=== PATIENT | male | born 1995 | race Caucasian/White ===

== ENCOUNTER → 2016-06-16 | Outpatient (CLI) | payer OTHER ==
[~2016-06-16] MED LIST: AGM875T PO; IBP600T1 PO; METH4TAB PO; ONDA8TAB9 PO; ONDAN4ODT PO; PRX10T PO
--- NOTE | 2016-06-16 15:26 | Diagnostic Imaging Report ---
EXAM: Skull, 3 views. INDICATION: Metal check for MRI. FINDINGS: Three views were obtained. There are no prior studies available for comparison. There is no evidence for a radiopaque foreign body overlying the orbits. There is no fracture or acute bony abnormality appreciated. The sinuses are generally clear. IMPRESSION: There is no evidence for a radiopaque foreign body overlying the orbits. Dictated by: Dictated on workstation # [id number]
--- NOTE | 2016-06-16 16:44 | Diagnostic Imaging Report ---
PROCEDURE: MRI right joint upper extremity without contrast. TECHNIQUE: Multiplanar, multisequence non contrast-enhanced MRI of the right upper extremity was accomplished. INDICATION: Right shoulder pain. FINDINGS: There is no os acromiale or Hill-Sachs deformity. There is acromioclavicular joint hypertrophy with no significant osteophyte formation. The clavicular end of the joint, however, is slightly prominent and projects inferiorly with a mild impression upon the myotendinous junction of the supraspinatus. There is mild increased signal in the distal supraspinatus and infraspinatus tendons suggestive of tendinosis and low-grade intrasubstance tear. There is minimal fluid in the subacromial-subdeltoid bursa. The long head biceps tendon is within its groove. The subscapularis tendon appears unremarkable. The glenoid labrum is better evaluated with an MR arthrogram study; however, it appears grossly unremarkable. There is no bone marrow signal abnormality. The muscle bulk and signal appear normal. IMPRESSION: There is mild rotator cuff tendinosis and suggestion of a low-grade intrasubstance tear. No full-thickness or retracted tear. Dictated by: Dictated on workstation # [id number]
== END ==
LOC: RAD 14:24
PROVIDERS: ATTEND Nurse Practitioner Family
DX: M25.511 Pain in right shoulder (principal); W19.XXXA Unspecified fall, initial encounter; Y99.8 Other external cause status
CPT/HCPCS: 70250; 73221

== ENCOUNTER 2017-05-07 17:15 | Emergency (ER) | payer OTHER ==
[~2017-05-07] VITALS: Ht 175.3 cm; Wt 72.6 kg
--- OUTSIDE RECORDS SUMMARY | 2017-05-07 17:22 | XMS REPORT ---
Author Author LIZBET GUNN [facility] eClinicalWorks Address Unknown Phone Unavailable Care Team Providers Care Proposal Manager Writer Name Role Phone LIZBET GUNN CP Unavailable Allergies, Adverse Reactions, Alerts Substance Reaction Event Type Naproxen 500 Mg Tablet Info Not Available Non Drug Allergy Problems Problem Type Condition ICD-9 Code Onset Dates Condition Status Problem Nausea alone 787.02 Active Problem Hip, thigh, leg, and ankle, superficial foreign body (splinter), without major open wound and without mention of infection 916.6 Active Problem Heartburn 787.1 Active Problem Acute tonsillitis 463 Active Problem Acute upper respiratory infections of unspecified site 465.9 Active Problem Nausea 787.02 Active Problem Unspecified disorder of skin and subcutaneous tissue 709.9 Active Problem Problems related to high-risk sexual behavior V69.2 Active Problem Sprain and strain of unspecified site of shoulder and upper arm 840.9 Active Problem Sprain and strain of unspecified site of back 847.9 Active Problem Special screening examination for unspecified viral disease V73.99 Active Problem Panic disorder without agoraphobia 300.01 Active Assessment Nausea 787.02 Active Problem Screening examination for venereal disease V74.5 Active Problem Other accidental fall from one level to another E884.9 Active Problem 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 Active Problem Unspecified episodic mood disorder 296.90 Active Problem Unspecified gastritis and gastroduodenitis without mention of hemorrhage 535.50 Active Problem Esophageal reflux 530.81 Active Problem 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.29 Active Medications Medication Code System Code Instructions Start Date End Date Status Dosage Zofran [facility] [address]-75 4 MG Orally Once a day Nov 01, 2014 2 tablets Procedures Procedure Coding System Code Date Office Visit, Est Pt., Level 3 CPT-4 79179 Nov 01, 2014 Vital Signs Date/Time: Nov 01, 2014 Temperature 98.0 F Weight 151.0 lbs Height 68 in BMI 22.96 Index Blood Pressure Diastolic 68 mmHg Blood Pressure Systolic 102 mmHg Cardiac Monitoring Heart Rate 86 bpm BMIPercentile 51.47 % Wt Percentile 43.88 % Results No Known Results Summary Purpose eClinicalWorks Submission
--- OUTSIDE RECORDS SUMMARY | 2017-05-07 17:23 | XMS REPORT ---
Author Author ALEJO HEAD [facility] eClinicalWorks Address Unknown Phone Unavailable Care Team Providers Care Ux Lead Name Role Phone ALEJO HEAD CP Unavailable Allergies, Adverse Reactions, Alerts Substance Reaction Event Type Naproxen 500 Mg Tablet Info Not Available Non Drug Allergy Problems Problem Type Condition Code Onset Dates Condition Status Problem Nausea [...] Panic disorder without agoraphobia 300.01 Active Assessment Left lateral knee pain M25.562 Active Problem Screening examination for venereal disease V74.5 Active Problem Other accidental fall from one level to another E884.9 Active Problem 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 Active Problem Unspecified episodic mood disorder 296.90 Active Problem Unspecified gastritis and gastroduodenitis without mention of hemorrhage 535.50 Active Problem Esophageal reflux 530.81 Active Problem 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
--- OUTSIDE RECORDS SUMMARY | 2017-05-07 17:23 | XMS REPORT ---
Author Author ANGELITO SHORE [facility] eClinicalWorks Address Unknown Phone Unavailable Care Team Providers Care Lettuce Trimmer Name Role Phone ANGELITO SHORE CP Unavailable Allergies, Adverse Reactions, Alerts Substance Reaction Event Type Naproxen 500 Mg Tablet Info Not Available Non Drug Allergy Problems Problem Type Condition ICD-9 Code Onset Dates Condition Status Problem 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.29 Active Problem Heartburn 787.1 Active Problem Nausea alone 787.02 Active Problem Acute upper respiratory infections of unspecified site 465.9 Active Problem Sprain and strain of unspecified site of shoulder and upper arm 840.9 Active Problem Acute tonsillitis 463 Active Problem Problems related to high-risk sexual behavior V69.2 Active Problem Hip, thigh, leg, and ankle, superficial foreign body (splinter), without major open wound and without mention of infection 916.6 Active Problem Sprain and strain of unspecified site of back 847.9 Active Problem Unspecified disorder of skin and subcutaneous tissue 709.9 Active Problem Screening examination for venereal disease V74.5 Active Problem Special screening examination for unspecified viral disease V73.99 Active Assessment Contusion 924.9 Active Problem Esophageal reflux 530.81 Active Problem Other accidental fall from one level to another E884.9 Active Problem Panic disorder without agoraphobia 300.01 Active Problem 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 Active Problem Unspecified episodic mood disorder 296.90 Active Problem Unspecified gastritis and gastroduodenitis without mention of hemorrhage 535.50 Active Medications No Known Medications Procedures Procedure Coding System Code Date Office Visit, Est Pt., Level 2 CPT-4 71865 Oct 17, 2014 Vital Signs Date/Time: Oct 17, 2014 Temperature 97.3 F Weight 151.8 lbs Height 68 in BMI 23.08 Index Blood Pressure Diastolic 60 mmHg Blood Pressure Systolic 112 mmHg Cardiac Monitoring Heart Rate 82 bpm BMIPercentile 53.58 % Wt Percentile 45.67 % Results No Known Results Summary Purpose eClinicalWorks Submission
--- OUTSIDE RECORDS SUMMARY | 2017-05-07 17:23 | XMS REPORT | Continuity of Care Document ---
Author Author [facility] Address Unknown Phone Unavailable Allergies Active Description Code Type Severity Reaction Onset Reported/Identified Relationship to Patient Clinical Status Yes No Known Drug Allergies [id number] Drug Allergy Unknown N/A 12/20/2010 Yes naproxen 500 mg tablet Drug Allergy 06/28/2011 Yes naproxen 500 mg tablet Drug Allergy N/A N/A 06/28/2011 Yes naproxen [id number] Drug Allergy Unknown N/A 05/01/2015 Medications There is no data. Problems Date Dx Coded Attending Type Code Diagnosis Diagnosed By 04/27/2010 719.41 PAIN IN JOINT INVOLVING SHOULDER REGION 04/27/2010 YVONNE RODRIGUEZ APRN 719.41 PAIN IN JOINT INVOLVING SHOULDER REGION 04/27/2010 719.41 PAIN IN JOINT INVOLVING SHOULDER REGION 04/27/2010 719.41 PAIN IN JOINT INVOLVING SHOULDER REGION 04/27/2010 YVONNE RODRIGUEZ APRN 719.41 PAIN IN JOINT INVOLVING SHOULDER REGION 04/27/2010 YVONNE RODRIGUEZ APRN 719.41 PAIN IN JOINT INVOLVING SHOULDER REGION 12/20/2010 Ot 840.9 SPRAIN SHOULDER/ARM NOS 12/20/2010 Ot 923.00 CONTUSION SHOULDER REG 12/20/2010 Ot 959.2 SHLDR/UPPER ARM INJ NOS 12/20/2010 Ot E000.8 OTHER EXTERNAL CAUSE STATUS 12/20/2010 Ot E005.3 ACTIVITIES INVOLVING TRAMPOLINE 12/20/2010 Ot E849.0 ACCIDENT IN HOME 12/20/2010 Ot E888.9 FALL NOS 03/10/2011 296.90 MOOD DISORDER NOS 03/10/2011 300.01 AN PANIC DIS W/O AGORA 03/10/2011 YVONNE RODRIGUEZ APRN 296.90 MOOD DISORDER NOS 03/10/2011 YVONNE RODRIGUEZ APRN 300.01 AN PANIC DIS W/O AGORA 03/10/2011 296.90 MOOD DISORDER NOS 03/10/2011 300.01 AN PANIC DIS W/O AGORA 03/10/2011 296.90 MOOD DISORDER NOS 03/10/2011 300.01 AN PANIC DIS W/O AGORA 03/10/2011 YVONNE RODRIGUEZ APRN 296.90 MOOD DISORDER NOS 03/10/2011 YVONNE RODRIGUEZ APRN 300.01 AN PANIC DIS W/O AGORA 03/10/2011 YVONNE RODRIGUEZ APRN 296.90 MOOD DISORDER NOS 03/10/2011 YVONNE RODRIGUEZ APRN 300.01 AN PANIC DIS W/O AGORA 05/25/2011 840.9 SPRAIN/STRAIN SHOULDER/ARM 05/25/2011 847.9 SPRAIN/STRAIN BACK UNSPEC 05/25/2011 YVONNE RODRIGUEZ APRN 840.9 SPRAIN/STRAIN SHOULDER/ARM 05/25/2011 YVONNE RODRIGUEZ APRN 847.9 SPRAIN/STRAIN BACK UNSPEC 05/25/2011 840.9 SPRAIN/STRAIN SHOULDER/ARM 05/25/2011 847.9 SPRAIN/STRAIN BACK UNSPEC 05/25/2011 840.9 SPRAIN/STRAIN SHOULDER/ARM 05/25/2011 847.9 SPRAIN/STRAIN BACK UNSPEC 05/25/2011 YVONNE RODRIGUEZ APRN 840.9 SPRAIN/STRAIN SHOULDER/ARM 05/25/2011 YVONNE RODRIGUEZ APRN 847.9 SPRAIN/STRAIN BACK UNSPEC 05/25/2011 YVONNE RODRIGUEZ APRN 840.9 SPRAIN/STRAIN SHOULDER/ARM 05/25/2011 YVONNE RODRIGUEZ APRN 847.9 SPRAIN/STRAIN BACK UNSPEC 06/28/2011 309.29 EXCITABILITY 06/28/2011 787.02 NAUSEA ALONE 06/28/2011 787.1 HEARTBURN 06/28/2011 YVONNE RODRIGUEZ APRN 309.29 EXCITABILITY 06/28/2011 YVONNE RODRIGUEZ APRN 787.02 NAUSEA ALONE 06/28/2011 YVONNE RODRIGUEZ APRN 787.1 HEARTBURN 06/28/2011 309.29 EXCITABILITY 06/28/2011 787.02 NAUSEA ALONE 06/28/2011 787.1 HEARTBURN 06/28/2011 309.29 EXCITABILITY 06/28/2011 787.02 NAUSEA ALONE 06/28/2011 787.1 HEARTBURN 06/28/2011 YVONNE RODRIGUEZ APRN 309.29 EXCITABILITY 06/28/2011 YVONNE RODRGIUEZ APRN 787.02 NAUSEA ALONE 06/28/2011 YVONNE RODRIGUEZ APRN 787.1 HEARTBURN 06/28/2011 YVONNE RODRIGUEZ APRN 309.29 EXCITABILITY 06/28/2011 YVONNE RODRIGUEZ APRN 787.02 NAUSEA ALONE 06/28/2011 YVONNE RODRIGUEZ APRN 787.1 HEARTBURN 08/27/2011 Ot 462 ACUTE PHARYNGITIS 08/27/2011 Ot 780.60 FEVER, UNSPECIFIED 09/09/2011 V73.99 VIRAL DISEAS SCREENING, UNSP 09/09/2011 YVONNE RODRIGUEZ APRN V73.99 VIRAL DISEAS SCREENING, UNSP 09/09/2011 V73.99 VIRAL DISEAS SCREENING, UNSP 09/09/2011 V73.99 VIRAL DISEAS SCREENING, UNSP 09/09/2011 YVONNE RODRIGUEZ APRN V73.99 VIRAL DISEAS SCREENING, UNSP 09/09/2011 YVONNE RODRIGUEZ APRN V73.99 VIRAL DISEAS SCREENING, UNSP 11/21/2011 463 TONSILLITIS ACUTE 11/21/2011 YVONNE RODRIGUEZ APRN 463 TONSILLITIS ACUTE 11/21/2011 463 TONSILLITIS ACUTE 11/21/2011 463 TONSILLITIS ACUTE 11/21/2011 YVONNE RODRIGUEZ APRN 463 TONSILLITIS ACUTE 11/21/2011 YVONNE RODRIGUEZ APRN 463 TONSILLITIS ACUTE 11/24/2011 709.9 UNSPECIFIED DISORDER OF SKIN AND SUBCUTANEOUS TISSUE 11/24/2011 V69.2 HIGH-RISK SEXUAL BEHAVIOR 11/24/2011 YVONNE RODRIGUEZ APRN 709.9 UNSPECIFIED DISORDER OF SKIN AND SUBCUTANEOUS TISSUE 11/24/2011 YVONNE RODRIGUEZ APRN V69.2 HIGH-RISK SEXUAL BEHAVIOR 11/24/2011 709.9 UNSPECIFIED DISORDER OF SKIN AND SUBCUTANEOUS TISSUE 11/24/2011 V69.2 HIGH-RISK SEXUAL BEHAVIOR 11/24/2011 709.9 UNSPECIFIED DISORDER OF SKIN AND SUBCUTANEOUS TISSUE 11/24/2011 V69.2 HIGH-RISK SEXUAL BEHAVIOR 11/24/2011 YVONNE RODRIGUEZ APRN 709.9 UNSPECIFIED DISORDER OF SKIN AND SUBCUTANEOUS TISSUE 11/24/2011 YVONNE RODRIGUEZ APRN V69.2 HIGH-RISK SEXUAL BEHAVIOR 11/24/2011 YVONNE RODRIGUEZ APRN 709.9 UNSPECIFIED DISORDER OF SKIN AND SUBCUTANEOUS TISSUE 11/24/2011 YVONNE RODRIGUEZ APRN V69.2 HIGH-RISK SEXUAL BEHAVIOR 03/24/2012 465.9 UPPER RESPIRATORY INFECTION 03/24/2012 465.9 UPPER RESPIRATORY INFECTION 03/24/2012 YVONNE RODRIGUEZ APRN T 465.9 UPPER RESPIRATORY INFECTION 03/24/2012 YVONNE RODRIGUEZ APRN T 465.9 UPPER RESPIRATORY INFECTION 08/15/2012 V74.5 STD SCREEN 08/15/2012 YVONNE RODRIGUEZ APRN V74.5 STD SCREEN 08/15/2012 YVONNE RODRIGUEZ APRN V74.5 STD SCREEN 07/03/2013 YVONNE RODRIGUEZ APRN T 530.81 GERD 07/03/2013 YVONNE RODRIGUEZ APRN 530.81 GERD 07/29/2013 YVONNE RODRIGUEZ APRN 535.50 GASTRITIS UNSPEC 07/29/2013 YVONNE RODRIGUEZ APRN 598.1 TRAUMATIC URETHRAL STRICTURE 07/29/2013 YVONNE RODRIGUEZ APRN E884.9 OTHER ACCIDENTAL FALL FROM ONE LEVEL TO ANOTHER 07/29/2013 YVONNE RODRIGUEZ APRN 535.50 GASTRITIS UNSPEC 07/29/2013 YVONNE RODRIGUEZ APRN 598.1 TRAUMATIC URETHRAL STRICTURE 07/29/2013 YVONNE RODRIGUEZ APRN E884.9 OTHER ACCIDENTAL FALL FROM ONE LEVEL TO ANOTHER 09/24/2013 YVONNE RODRIGUEZ APRN 916.6 SUPERFICIAL FOREIGN BODY (SPLINTER) OF HIP THIGH LEG AND ANKLE WITHOUT MAJOR OPEN WOUND AND WITHOUT INFECTION 05/01/2015 PAUL TUTTLE, SWETHA Steele Ot K52.9 NONINFECTIVE GASTROENTERITIS AND COLITIS 05/04/2015 PAUL TUTTLE, SWETHA Steele Ot K52.9 05/27/2015 PAUL TUTTLE, SWETHA Steele Ot K52.9 06/16/2016 SHLOMO LEON APRN Ot M25.511 PAIN IN RIGHT SHOULDER 06/16/2016 SHLOMO LEON APRN Ot W19.XXXA UNSPECIFIED FALL, INITIAL ENCOUNTER 06/16/2016 SHLOMO LEON APRN Ot Y99.8 OTHER EXTERNAL CAUSE STATUS 06/16/2016 SHLOMO LEON APRN Ot M25.511 PAIN IN RIGHT SHOULDER 06/16/2016 SHLOMO LEON APRN Ot W19.XXXA UNSPECIFIED FALL, INITIAL ENCOUNTER 06/16/2016 SHLOMO LEON APRN Ot Y99.8 OTHER EXTERNAL CAUSE STATUS 08/31/2016 SHLOMO LEON APRN Ot M25.511 PAIN IN RIGHT SHOULDER 08/31/2016 SHLOMO LEON APRN Ot W19.XXXA UNSPECIFIED FALL, INITIAL ENCOUNTER 08/31/2016 SHLOMO LEON APRN Ot Y99.8 OTHER EXTERNAL CAUSE STATUS Procedures Code [place] [address] ROUTINE VENIPUNCTURE 01/20/2012 HERPSM1,2 HERPES SIMPLEX 1 AND 2, IGM, IGG 01/21/2012 01700 ROUTINE VENIPUNCTURE 08/15/2012 43704 SYPHILLIS-STATE LAB 08/15/2012 41492 GC/CHLAM URINE (STATE) 08/15/2012 69477 HIV ANTIBODIES (RML) 08/17/2012 10681 XRAY TIBIA/FIBULA LEFT 09/24/2013 Results There is no data. Encounters ACCT No. Visit Date/Time Discharge Status Pt. Type Provider Facility Loc./Unit Complaint [id number] 09/24/2013 14:30:00 09/24/2013 23:59:59 CLS Outpatient YVONNE RODRIGUEZ APRN [id number] 07/29/2013 15:43:00 07/29/2013 23:59:59 CLS Outpatient YVONNE RODRIGUEZ APRN [id number] 03/24/2012 09:29:00 03/24/2012 23:59:59 CLS Outpatient [id number] 01/20/2012 12:21:00 01/20/2012 23:59:59 CLS Outpatient YVONNE RODRIGUEZ APRN [id number] 01/20/2012 12:21:00 01/20/2012 23:59:59 CLS Outpatient [id number] 08/15/2012 16:28:00 Document Registration [id number] 06/16/2016 14:24:00 06/16/2016 23:59:59 CLS Outpatient SHLOMO LEON APRN [facility] RAD M25.511 [id number] 05/01/2015 09:45:00 05/01/2015 12:39:00 DIS Emergency PAUL TUTTLE, SWETHA Steele [facility] ER HEADACHE VOMITING/ DIARRHEA FEVER [id number] 08/27/2011 09:53:00 Document Registration [id number] 12/20/2010 21:57:00 Document Registration
--- OUTSIDE RECORDS SUMMARY | 2017-05-07 17:23 | XMS REPORT ---
Author Author LIZBET GUNN [facility] eClinicalWorks Address Unknown Phone Unavailable Care Team Providers Care Agency Owner Name Role Phone LIZBET GUNN CP Unavailable Allergies, Adverse Reactions, Alerts Substance Reaction Event Type Naproxen 500 Mg Tablet Info Not Available Non Drug Allergy Problems Problem Type Condition Code Onset Dates Condition Status Assessment Left knee pain M25.562 Active Problem Knee pain M25.569 Active Medications Medication Code System Code Instructions Start Date End Date Status Dosage Nabumetone [facility] [address]-18 500 MG Orally Twice a day June 12, 2015 July 12, 2015 1 tablet Procedures Procedure Coding System Code Date Office Visit, Est Pt., Level 3 CPT-4 04948 June 12, 2015 X-RAY EXAM OF KNEE, 3 CPT-4 81557 June 12, 2015 Vital Signs Date/Time: June 12, 2015 Temperature 98.3 F Weight 169.2 lbs Height 68 in BMI 25.72 Index Blood Pressure Diastolic 62 mmHg Blood Pressure Systolic 112 mmHg Cardiac Monitoring Heart Rate 72 bpm Results Name Result Date Reference Range Unit Abnormality Flag Xray : Knee, Left 3 views (IN HOUSE) Summary Purpose eClinicalWorks Submission
--- OUTSIDE RECORDS SUMMARY | 2017-05-07 17:23 | XMS REPORT ---
Author YVONNE Mcmanus [facility] eClinicalWorks Address Unknown Phone Unavailable Care Team Providers Care Receipt And Report Clerk Name Role Phone YVONNE RODRIGUEZ CP Unavailable Allergies, Adverse Reactions, Alerts Substance [...] Panic disorder without agoraphobia 300.01 Active Assessment Ankle sprain 845.00 Active Problem Screening examination for venereal disease [...] Office Visit, Est Pt., Level 3 CPT-4 96641 Nov 07, 2014 X-RAY EXAM OF ANKLE CPT-4 84483 Nov 07, 2014 Vital Signs Date/Time: Nov 07, 2014 Temperature 98.1 F Weight 151.7 lbs Height 68 in BMI 23.06 Index Blood Pressure Diastolic 50 mmHg Blood Pressure Systolic 116 mmHg Cardiac Monitoring Heart Rate 64 bpm BMIPercentile 52.75 % Wt Percentile 45.06 % Results No Known Results Summary Purpose eClinicalWorks Submission
--- NOTE | 2017-05-07 18:18 | Diagnostic Imaging Report ---
PATIENT HISTORY: Twisting injury to the left knee 5-7 days ago, pain in the anterior left knee. TECHNIQUE: Three views of the left knee. COMPARISON: None. FINDINGS: No acute fracture or dislocation is seen in the left knee. Alignment appears normal. The joint spaces are preserved. No significant left knee joint effusion is seen. IMPRESSION: No acute osseous abnormality is seen in the left knee. Dictated by: Dictated on workstation # [id number]
--- NOTE | 2017-05-07 18:25 | ED Lower Extremity ---
General Chief Complaint: Lower Extremity Stated Complaint: L KNEE PAIN Nursing Triage Note: ARRIVED VIA AMB TO ROOM 10 WITHOUT DIFFICULTY. HAS HAD SEVERAL LEFT KNEE INJURIES OVER THE LAST YEAR. THE LATEST WAS ON LAST MONDAY. STATES HE HEARD A POP AND HIS KNEE TWISTED AND NOW HE FEELS LIKE IT HAS FLUID ON IT. Nursing Sepsis Screen: No Definite Risk Source: patient History of Present Illness Date Seen by Provider: May 07, 2017 Time Seen by Provider: 17:55 Initial Comments PT C/O LEFT KNEE PAIN WHEN HE BENDS IT FOR OVER A WEEK HAS HAD PROBLEMS OFF AND ON WITH LEFT KNEE FOR A FEW YEARS LAST MONTH HE FELL ON IT, THEN OVER A WEEK AGO HE TWISTED IT AND IT POPPED NO OTHER INJURIES HAS NOT SOUGHT CARE FOR A COUPLE OF YEARS FOR THIS PROBLEM HAS NOT TAKEN ANYTHING FOR PAIN AT ANY TIME KNEE IS NOT HURTING TODAY PCP:SWAPNIL Allergies and Home Medications Allergies Coded Allergies: naproxen (Verified Allergy, Unknown, 05/01/15) Home Medications Methylprednisolone 4 Mg Tab.ds.pk, 4 MG PO UD Prescribed by: JANA SPEAR on 05/07/17 2936 Patient Home Medication List Home Medication List Reviewed: Yes Constitutional: no symptoms reported Musculoskeletal: see HPI Skin: no symptoms reported Psychiatric/Neurological: No Symptoms Reported Past Lhfulij-Hpnqdo-Dzoxss Hx Patient Social History Alcohol Use: Occasionally Uses Recreational Drug Use: No Smoking Status: Never a Smoker Recent Foreign Travel: No Contact w/Someone Who Travel: No Recent Infectious Disease Expo: No Surgeries History of Surgeries: No Respiratory History of Respiratory Disorde: No Cardiovascular History of Cardiac Disorders: No Neurological History of Neurological Disord: No Genitourinary History of Genitourinary Disor: No Gastrointestinal History of Gastrointestinal Di: Yes Gastrointestinal Disorders: Gastroesophageal Reflux Musculoskeletal History of Musculoskeletal Dis: Yes (LEFT KNEE PROBLEMS) Endocrine History of Endocrine Disorders: No HEENT History of HEENT Disorders: No Cancer History of Cancer: No Psychosocial History of Psychiatric Problem: No Integumentary History of Skin or Integumenta: No Physical Exam Vital Signs Vital Signs - First Documented 05/07/17 17:20 Temp 98.0 Pulse 78 Resp 18 B/P (MAP) 139/61 (87) Pulse Ox 98 Capillary Refill : Less Than 3 Seconds General Appearance: WD/WN, no apparent distress, other (STANDING UP, WALKING AROUND ROOM WITHOUT DIFFICULTY, SITS/BENDS KNEE WITHOUT DIFFICULTY. ) Hips: left hip normal inspection Legs: left leg normal inspection Knees: left knee normal range of motion, left knee no evidence of injury, left knee other (NO SWELLING OR EXTERNAL EVIDENCE OF TRAUMA. FULL ROM. NO LIGAMENT LAXITY. MOTOR/SENSORY/VASCULAR INTACT. ) Ankles: left ankle normal inspection Feet: left foot normal inspection Neurologic/Tendon: normal sensation, normal motor functions, normal tendon functions Neurologic/Psychiatric: assistant librarian II-XII nml as tested, no motor/sensory deficits, alert, normal mood/affect, oriented x 3 Skin: normal color, warm/dry Splinting and Joint Reduction : Jono wrap: Yes Immobilizers: 19 inch Knee Progress/Results/Core Measures Results/Orders My Orders Orders - JANA SPEAR DO Knee, Left, 3 Views (05/07/17 17:57) Jono Bandage (05/07/17 18:31) Knee Immobilizer (05/07/17 18:31) Vital Signs/I&O Vital Sign - Last 12Hours 05/07/17 17:20 Temp 98.0 Pulse 78 Resp 18 B/P (MAP) 139/61 (87) Pulse Ox 98 Blood Pressure Mean: 87 Diagnostic Imaging Comments XRAYS LEFT KNEE--NO ACUTE PROCESS, PER RADIOLOGIST REPORT @ 1820 Reviewed: Reviewed by Me Departure Impression Impression: Primary Impression: Left knee pain Disposition: 01 HOME, SELF-CARE Condition: Stable Departure-Patient Inst. Referrals: JOSE BARILLAS MD [facility] Patient Instructions: How to Use an Elastic Bandage, Knee Immobilizer (DC), Knee Sprain (DC) Add. Discharge Instructions: JONO WRAP AND KNEE IMMOBILIZER AT ALL TIMES ALTERNATE ICE AND HEAT TO AREA AT 20 MINUTE INTERVALS FOLLOW UP WITH DR. BARILLAS/ ORTHO 4 STATES NEXT WEEK FOR FURTHER CARE All discharge instructions reviewed with patient and/or family. Voiced understanding. Scripts Methylprednisolone (Medrol) 4 Mg Tab.ds.pk 4 MG PO UD, #1 PKG Prov: JANA SPEAR DO 05/07/17 JANA SPEAR DO May 07, 2017 18:25
[2017-05-07] MEDS ORDERED: METH4TAB PO (18:36)
[2017-05-07 18:52] VITALS: BP 139/61
== END 2017-05-07 19:00 | disposition home or self-care (01) ==
LOC: EDUNIT# 17:15 → ER 17:17
DX: M25.562 Pain in left knee (principal); K21.9 Gastro-esophageal reflux disease without esophagitis; Z91.81 History of falling
CPT/HCPCS: 73562

== ENCOUNTER 2018-07-11 11:22 | Emergency (ER) | payer SELFPAY ==
[~2018-07-11] VITALS: Ht 175.3 cm; Wt 74.8 kg
--- OUTSIDE RECORDS SUMMARY | 2018-07-11 11:28 | XMS REPORT ---
Author Author Migration, Doctor Organization [facility] Address Unknown Phone Unavailable Care Team Providers Care Software Licensing Executive Name Role Phone Migration, Doctor Unavailable Unavailable PROBLEMS Type Condition ICD9-CM Code [id number] Code Onset Dates Condition Status SNOMED Code Problem Knee pain M25.569 Active [id number] ALLERGIES No Information ENCOUNTERS Encounter Location Date Diagnosis [place] [id number] [place] [address] Mar, Sore throat J02.9 and Acute nasopharyngitis J00 [place] [id number] [place] [address] May, Left knee pain M25.562 [place] [id number] [place] [address] Nov, Left lateral knee pain M25.562 [facility] [id number] [place] [address] Oct, Ankle sprain 845.00 [place] [id number] [place] [address] Oct, Nausea 787.02 [facility] [id number] [place] [address] Sep, Contusion 924.9 [facility] [id number] [place] [address] May, [facility] [id number] [place] [address] May, [facility] [id number] [place] [address] Sep, [facility] [id number] [place] [address] Sep, [facility] [place] [facility] [address] [id number] [place] [address] Sep, [facility] [place] [facility] [address] [id number] [place] [address] Sep, [facility] [place] [facility] [address] [id number] [place] [address] Jul, [facility] [place] [facility] [address] [id number] [place] [address] Jul, [facility] [place] [facility] [address] [id number] [place] [address] June, [facility] [place] [facility] [address] [id number] [place] [address] June, [facility] [place] [facility] [address] [id number] [place] [address] Aug, [facility] [place] [facility] [address] [id number] [place] [address] Jul, [facility] [place] [facility] [address] [id number] [place] [address] Jul, [facility] [place] [facility] [address] [id number] [place] [address] Mar, [facility] [place] [facility] [address] [id number] [place] [address] Feb, [facility] [place] [facility] [address] [id number], [place] [address] Feb, [facility] [place] [facility] [address] [id number] [place] [address] Jan, [facility] [place] [facility] [address] [id number] [place] [address] Jan, [facility] [place] [facility] [address] [id number] [place] [address] Jan, [facility] [place] [facility] [address] [id number] [place] [address] Jan, [facility] [place] [facility] [address] [id number] [place] [address] Dec, [facility] [place] [facility] [address] [id number] [place] [address] Dec, [facility] [place] [facility] [address] [id number] [place] [address] Nov, [facility] [place] [facility] [address] [id number] [place] [address] Nov, [facility] [place] [facility] [address] [id number] [place] [address] Nov, [facility] [place] [facility] [address] [id number] [place] [address] Nov, [facility] [place] [facility] [address] [facility] [id number] [place] [address] Nov, [facility] [place] [facility] [address] [id number] [place] [address] Nov, [facility] [place] [facility] [address] [facility] [id number] [place] [address] 15 Nov, 2011 [facility] [place] [facility] [address] [facility] [id number] [place] [address] Nov, [facility] [place] [facility] [address] [id number] [place] [address] Nov, [facility] [place] [facility] [address] [id number], [place] [address] Nov, [facility] [place] [facility] [address] [id number] [place] [address] Nov, [facility] [place] [facility] [address] [facility] [id number] [place] [address] Nov, [facility] [place] [facility] [address] [id number], [place] [address] Sep, [facility] [address], [place] [address] Aug, [facility] [address], [place] [address] Aug, [facility] [address], [place] [address] Aug, [facility] [id number] [place] [address] June, [facility] [id number] [place] [address] May, [facility] [address], [place] [address] Mar, [facility] [address], [place] [address] Feb, [facility] [address], [place] [address] Jan, IMMUNIZATIONS No Known Immunizations SOCIAL HISTORY Never Assessed REASON FOR VISIT EMR-[facility] [place] PLAN OF CARE VITAL SIGNS MEDICATIONS Unknown Medications RESULTS No Results PROCEDURES No Known procedures INSTRUCTIONS MEDICATIONS ADMINISTERED No Known Medications
--- OUTSIDE RECORDS SUMMARY | 2018-07-11 11:28 | XMS REPORT ---
Author Author Migration, Doctor Organization [facility] Address Unknown Phone Unavailable Care Team Providers Care Chemical Tester Name Role Phone Migration, Doctor Unavailable Unavailable PROBLEMS Type Condition ICD9-CM Code BCN32-SP Code Onset Dates Condition Status SNOMED Code Problem Knee pain M25.569 Active [id number] ALLERGIES No Information ENCOUNTERS Encounter Location Date Diagnosis [place] [id number] [place] [address] Mar, Sore throat J02.9 and Acute nasopharyngitis J00 [place] [id number] [place] [address] May, Left knee pain M25.562 [place] [id number] [place] [address] Nov, Left lateral knee pain M25.562 [facility] [id number] [place] [address] Oct, Ankle sprain 845.00 [facility] [id number] [place] [address] Oct, Nausea 787.02 [facility] [id number] [place] [address] Sep, Contusion 924.9 [facility] [id number] [place] [address] May, [facility] [id number] [place] [address] May, [facility] [id number] [place] [address] Sep, [facility] [id number] [place] [address] Sep, [facility] [place] [facility] [address] [id number] [place] [address] Sep, [facility] [place] [facility] [address] [id number] [place] [address] Sep, [facility] [place] [facility] [address] [id number] [place] [address] Jul, [facility] [place] [facility] [address] [id number] [place] [address] Jul, [facility] [place] [facility] [address] [id number] [place] [address] June, [facility] [place] [facility] [address] [id number] [place] [address] June, [facility] [place] [facility] [address] [id number] [place] [address] Aug, [facility] [place] [facility] [address] [id number] [place] [address] Jul, [facility] [place] [facility] [address] [id number] [place] [address] Jul, [facility] [place] [facility] [address] [id number] [place] [address] Mar, [facility] [place] [facility] [address] [id number] [place] [address] Feb, [facility] [place] [facility] [address] [id number], [place] [address] Feb, [facility] [place] [facility] [address] [id number] [place] [address] Jan, [facility] [place] [facility] [address] [id number] [place] [address] Jan, [facility] [place] [facility] [address] [id number] [place] [address] Jan, [facility] [place] [facility] [address] [id number] [place] [address] Jan, [facility] [place] [facility] [address] [id number] [place] [address] Dec, [facility] [place] [facility] [address] [id number] [place] [address] Dec, [facility] [place] [facility] [address] [id number] [place] [address] Nov, [facility] [place] [facility] [address] [id number] [place] [address] Nov, [facility] [place] [facility] [address] [id number] [place] [address] Nov, [facility] [place] [facility] [address] [id number] [place] [address] Nov, [facility] [place] [facility] [address] [facility] [id number] [place] [address] Nov, [facility] [place] [facility] [address] [id number] [place] [address] Nov, [facility] [place] [facility] [address] [facility] [id number] [place] [address] 15 Nov, 2011 [facility] [place] [facility] [address] [facility] [id number] [place] [address] Nov, [facility] [place] [facility] [address] [id number] [place] [address] Nov, [facility] [place] [facility] [address] [id number], [place] [address] Nov, [facility] [place] [facility] [address] [id number] [place] [address] Nov, [facility] [place] [facility] [address] [facility] [id number] [place] [address] Nov, [facility] [place] [facility] [address] [id number], [place] [address] Sep, [facility] [address], [place] [address] Aug, [facility] [address], [place] [address] Aug, [facility] [address], [place] [address] Aug, [facility] [id number] [place] [address] June, [facility] [address] [place] [address] May, [facility] [address], [place] [address] Mar, [facility] [address], [place] [address] Feb, [facility] [address], [place] [address] Jan, IMMUNIZATIONS No Known Immunizations SOCIAL HISTORY Never Assessed REASON FOR VISIT EMR-[facility] [place] PLAN OF CARE VITAL SIGNS MEDICATIONS Unknown Medications RESULTS No Results PROCEDURES No Known procedures INSTRUCTIONS MEDICATIONS ADMINISTERED No Known Medications
--- OUTSIDE RECORDS SUMMARY | 2018-07-11 11:28 | XMS REPORT ---
Author Author Migration, Doctor Organization [facility] Address Unknown Phone Unavailable Care Team Providers Care Machine Feeder Name Role Phone Migration, Doctor Unavailable Unavailable PROBLEMS Type Condition ICD9-CM Code [id number] Code Onset Dates Condition Status SNOMED Code Problem Knee pain M25.569 Active [id number] ALLERGIES No Information ENCOUNTERS Encounter Location Date Diagnosis [place] [id number] [place] [address] Mar, Sore throat J02.9 and Acute nasopharyngitis J00 [place] [id number] [place] [address] May, Left knee pain M25.562 [place] [id number] [place] [address] Nov, Left lateral knee pain M25.562 [facility] [id number] [place] [address] Oct, Ankle sprain 845.00 [facility] [id number] [place] [address] Oct, Nausea 787.02 [facility] [id number] [place] [address] Sep, Contusion 924.9 [facility] [id number] [place] [address] May, [facility] [id number] [place] [address] May, [facility] [id number] [place] [address] Sep, [facility] [id number] [place] [address] Sep, [facility] [place] [facility] [address] [id number] [place] [address] Sep, [facility] [place] [facility] [address] [id number] [place] [address] Sep, [facility] [place] [facility] [address] [id number] [place] [address] Jul, [facility] [place] [facility] [address] [id number] [place] [address] Jul, [facility] [place] [facility] [address] [id number] [place] [address] June, [facility] [place] [facility] [address] [id number] [place] [address] June, [facility] [place] [facility] [address] [id number] [place] [address] Aug, [facility] [place] [facility] [address] [id number] [place] [address] Jul, [facility] [place] [facility] [address] [id number] [place] [address] Jul, [facility] [place] [facility] [address] [id number] [place] [address] Mar, [facility] [place] [facility] [address] [id number] [place] [address] Feb, [facility] [place] [facility] [address] [id number] [place] [address] Feb, [facility] [place] [facility] [address] [id number] [place] [address] Jan, [facility] [place] [facility] [address] [id number] [place] [address] Jan, [facility] [place] [facility] [address] [id number] [place] [address] Jan, [facility] [place] [facility] [address] [id number] [place] [address] Jan, [facility] [place] [facility] [address] [id number] [place] [address] Dec, [facility] [place] [facility] [address] [id number] [place] [address] Dec, [facility] [place] [facility] [address] [id number] [place] [address] Nov, [facility] [place] [facility] [address] [id number] [place] [address] Nov, [facility] [place] [facility] [address] [id number] [place] [address] Nov, [facility] [place] [facility] [address] [id number] [place] [address] Nov, [facility] [place] [facility] [address] [facility] [id number] [place] [address] Nov, [facility] [place] [facility] [address] [id number] [place] [address] Nov, [facility] [place] [facility] [address] [facility] [id number] [place] [address] 15 Nov, 2011 [facility] [place] [facility] [address] [facility] [id number] [place] [address] Nov, [facility] [place] [facility] [address] [id number] [place] [address] Nov, [facility] [place] [facility] [address] [id number] [place] [address] Nov, [facility] [place] [facility] [address] [id number] [place] [address] Nov, [facility] [place] [facility] [address] [facility] [id number] [place] [address] Nov, [facility] [place] [facility] [address] [id number] [address] Sep, [facility] [address] [address] Aug, [facility] [address] [address] Aug, [facility] [address] [address] Aug, [facility] [id number] [place] [address] June, [facility] [address] [place] [address] May, [facility] [address] [address] Mar, [facility] [address] [address] Feb, [facility] [address] [address] Jan, IMMUNIZATIONS No Known Immunizations SOCIAL HISTORY Never Assessed REASON FOR VISIT EMR-[facility] [place] PLAN OF CARE VITAL SIGNS MEDICATIONS Unknown Medications RESULTS No Results PROCEDURES No Known procedures INSTRUCTIONS MEDICATIONS ADMINISTERED No Known Medications
--- OUTSIDE RECORDS SUMMARY | 2018-07-11 11:29 | XMS REPORT ---
Author Author Migration, Doctor Organization [facility] Address Unknown Phone Unavailable Care Team Providers Care Sales Order Administrator Name Role Phone Migration, Doctor Unavailable Unavailable PROBLEMS Type Condition ICD9-CM Code RFS78-IV Code Onset Dates Condition Status SNOMED Code Problem Knee pain M25.569 Active [id number] ALLERGIES No Information ENCOUNTERS Encounter Location Date Diagnosis [place] [id number] [place] [address] Mar, Sore throat J02.9 and Acute nasopharyngitis J00 [place] [id number] [place] [address] May, Left knee pain M25.562 [place] [id number] [place] [address] Nov, Left lateral knee pain M25.562 [facility] [id number] [place] [address] Oct, Ankle sprain 845.00 [place] [id number] [place] [address] Oct, Nausea 787.02 [facility] [id number] [place] [address] Sep, Contusion 924.9 [facility] [id number] [place] [address] May, [facility] [id number] [place] [address] May, [facility] [id number] [place] [address] Sep, [facility] [id number] [place] [address] Sep, [facility] [place] [facility] [address] [id number] [place] [address] Sep, [facility] [place] [facility] [address] [id number] [place] [address] Sep, [facility] [place] [facility] [address] [id number] [place] [address] Jul, [facility] [place] [facility] [address] [id number] [place] [address] Jul, [facility] [place] [facility] [address] [id number] [place] [address] June, [facility] [place] [facility] [address] [id number] [place] [address] June, [facility] [place] [facility] [address] [id number] [place] [address] Aug, [facility] [place] [facility] [address] [id number] [place] [address] Jul, [facility] [place] [facility] [address] [id number] [place] [address] Jul, [facility] [place] [facility] [address] [id number] [place] [address] Mar, [facility] [place] [facility] [address] [id number] [place] [address] Feb, [facility] [place] [facility] [address] [id number] [address] Feb, [facility] [place] [facility] [address] [id number] [place] [address] Jan, [facility] [place] [facility] [address] [id number] [place] [address] Jan, [facility] [place] [facility] [address] [id number] [place] [address] Jan, [facility] [place] [facility] [address] [id number] [place] [address] Jan, [facility] [place] [facility] [address] [id number] [place] [address] Dec, [facility] [place] [facility] [address] [id number] [place] [address] Dec, [facility] [place] [facility] [address] [id number] [place] [address] Nov, [facility] [place] [facility] [address] [id number] [place] [address] Nov, [facility] [place] [facility] [address] [id number] [place] [address] Nov, [facility] [place] [facility] [address] [id number] [place] [address] Nov, [facility] [place] [facility] [address] [facility] [id number] [place] [address] Nov, [facility] [place] [facility] [address] [id number] [place] [address] Nov, [facility] [place] [facility] [address] [facility] [id number] [place] [address] 15 Nov, 2011 [facility] [place] [facility] [address] [facility] [id number] [place] [address] Nov, [facility] [place] [facility] [address] [id number] [place] [address] Nov, [facility] [place] [facility] [address] [id number], [place] [address] Nov, [facility] [place] [facility] [address] [id number] [place] [address] Nov, [facility] [place] [facility] [address] [facility] [id number] [place] [address] Nov, [facility] [place] [facility] [address] [id number], [place] [address] Sep, [facility] [id number] [address] Aug, [facility] [id number] [address] Aug, [facility] [id number] [address] Aug, [facility] [id number] [place] [address] June, [facility] [id number] [place] [address] May, [facility] [id number] [address] Mar, [facility] [id number] [address] Feb, [facility] [id number] [address] Jan, IMMUNIZATIONS No Known Immunizations SOCIAL HISTORY Never Assessed [place]ASON FOR [place]IT [place] [place] VITAL SIGNS MEDICATIONS Unknown Medications RESULTS No Results PROCEDURES No Known procedures INSTRUCTIONS MEDICATIONS ADMINISTERED No Known Medications
--- OUTSIDE RECORDS SUMMARY | 2018-07-11 11:29 | XMS REPORT ---
Author Author Migration, Doctor Organization [facility] Address Unknown Phone Unavailable Care Team Providers Care Insurance Administrative Assistant Name Role Phone Migration, Doctor Unavailable Unavailable PROBLEMS Type Condition ICD9-CM Code QPF72-IP Code Onset Dates Condition Status SNOMED Code Problem Knee pain M25.569 Active [id number] ALLERGIES No Information ENCOUNTERS Encounter Location Date Diagnosis [place] [id number] [place] [address] Mar, Sore throat J02.9 and Acute nasopharyngitis J00 [place] [id number] [place] [address] May, Left knee pain M25.562 [place] [id number] [place] [address] Nov, Left lateral knee pain M25.562 [facility] [id number] [place] [address] Oct, Ankle sprain 845.00 [place] [id number] [place] [address] Oct, Nausea 787.02 [facility] [id number] [place] [address] Sep, Contusion 924.9 [facility] [id number] [place] [address] May, [facility] [id number] [place] [address] May, [facility] [id number] [place] [address] Sep, [facility] [id number] [place] [address] Sep, [facility] [place] [facility] [address] [id number] [place] [address] Sep, [facility] [place] [facility] [address] [id number] [place] [address] Sep, [facility] [place] [facility] [address] [id number] [place] [address] Jul, [facility] [place] [facility] [address] [id number] [place] [address] Jul, [facility] [place] [facility] [address] [id number] [place] [address] June, [facility] [place] [facility] [address] [id number] [place] [address] June, [facility] [place] [facility] [address] [id number] [place] [address] Aug, [facility] [place] [facility] [address] [id number] [place] [address] Jul, [facility] [place] [facility] [address] [id number] [place] [address] Jul, [facility] [place] [facility] [address] [id number] [place] [address] Mar, [facility] [place] [facility] [address] [id number] [place] [address] Feb, [facility] [place] [facility] [address] [id number] [address] Feb, [facility] [place] [facility] [address] [id number] [place] [address] Jan, [facility] [place] [facility] [address] [id number] [place] [address] Jan, [facility] [place] [facility] [address] [id number] [place] [address] Jan, [facility] [place] [facility] [address] [id number] [place] [address] Jan, [facility] [place] [facility] [address] [id number] [place] [address] Dec, [facility] [place] [facility] [address] [id number] [place] [address] Dec, [facility] [place] [facility] [address] [id number] [place] [address] Nov, [facility] [place] [facility] [address] [id number] [place] [address] Nov, [facility] [place] [facility] [address] [id number] [place] [address] Nov, [facility] [place] [facility] [address] [id number] [place] [address] Nov, [facility] [place] [facility] [address] [facility] [id number] [place] [address] Nov, [facility] [place] [facility] [address] [id number] [place] [address] Nov, [facility] [place] [facility] [address] [facility] [id number] [place] [address] 15 Nov, 2011 [facility] [place] [facility] [address] [facility] [id number] [place] [address] Nov, [facility] [place] [facility] [address] [id number] [place] [address] Nov, [facility] [place] [facility] [address] [id number], [place] [address] Nov, [facility] [place] [facility] [address] [id number] [place] [address] Nov, [facility] [place] [facility] [address] [facility] [id number] [place] [address] Nov, [facility] [place] [facility] [address] [id number], [place] [address] Sep, [facility] [address] [address] Aug, [facility] [address] [address] Aug, [facility] [address] [address] Aug, [facility] [id number] [place] [address] June, [facility] [id number] [place] [address] May, [facility] [address] [address] Mar, [facility] [address] [address] Feb, [facility] [address] [address] Jan, IMMUNIZATIONS No Known Immunizations SOCIAL HISTORY Never Assessed REASON FOR VISIT EMR-[facility] PLAN OF CARE VITAL SIGNS MEDICATIONS Unknown Medications RESULTS No Results PROCEDURES No Known procedures INSTRUCTIONS MEDICATIONS ADMINISTERED No Known Medications
--- OUTSIDE RECORDS SUMMARY | 2018-07-11 11:29 | XMS REPORT ---
Author Author Migration, Doctor Organization [facility] Address Unknown Phone Unavailable Care Team Providers Care International Marketing Specialist Name Role Phone Migration, Doctor Unavailable Unavailable PROBLEMS Type Condition ICD9-CM Code [id number] Code Onset Dates Condition Status SNOMED Code Problem Knee pain M25.569 Active [id number] ALLERGIES No Information ENCOUNTERS Encounter Location Date Diagnosis [place] [id number] [place] [address] Mar, Sore throat J02.9 and Acute nasopharyngitis J00 [place] [id number] [place] [address] May, Left knee pain M25.562 [place] [id number] [place] [address] Nov, Left lateral knee pain M25.562 [facility] [id number] [place] [address] Oct, Ankle sprain 845.00 [place] [id number] [place] [address] Oct, Nausea 787.02 [facility] [id number] [place] [address] Sep, Contusion 924.9 [facility] [id number] [place] [address] May, [facility] [id number] [place] [address] May, [facility] [id number] [place] [address] Sep, [facility] [id number] [place] [address] Sep, [facility] [place] [facility] [address] [id number] [place] [address] Sep, [facility] [place] [facility] [address] [id number] [place] [address] Sep, [facility] [place] [facility] [address] [id number] [place] [address] Jul, [facility] [place] [facility] [address] [id number] [place] [address] Jul, [facility] [place] [facility] [address] [id number] [place] [address] June, [facility] [place] [facility] [address] [id number] [place] [address] June, [facility] [place] [facility] [address] [id number] [place] [address] Aug, [facility] [place] [facility] [address] [id number] [place] [address] Jul, [facility] [place] [facility] [address] [id number] [place] [address] Jul, [facility] [place] [facility] [address] [id number] [place] [address] Mar, [facility] [place] [facility] [address] [id number] [place] [address] Feb, [facility] [place] [facility] [address] [id number], [place] [address] Feb, [facility] [place] [facility] [address] [id number] [place] [address] Jan, [facility] [place] [facility] [address] [id number] [place] [address] Jan, [facility] [place] [facility] [address] [id number] [place] [address] Jan, [facility] [place] [facility] [address] [id number] [place] [address] Jan, [facility] [place] [facility] [address] [id number] [place] [address] Dec, [facility] [place] [facility] [address] [id number] [place] [address] Dec, [facility] [place] [facility] [address] [id number] [place] [address] Nov, [facility] [place] [facility] [address] [id number] [place] [address] Nov, [facility] [place] [facility] [address] [id number] [place] [address] Nov, [facility] [place] [facility] [address] [id number] [place] [address] Nov, [facility] [place] [facility] [address] [facility] [id number] [place] [address] Nov, [facility] [place] [facility] [address] [id number] [place] [address] Nov, [facility] [place] [facility] [address] [facility] [id number] [place] [address] 15 Nov, 2011 [facility] [place] [facility] [address] [facility] [id number] [place] [address] Nov, [facility] [place] [facility] [address] [id number] [place] [address] Nov, [facility] [place] [facility] [address] [id number], [place] [address] Nov, [facility] [place] [facility] [address] [id number] [place] [address] Nov, [facility] [place] [facility] [address] [facility] [id number] [place] [address] Nov, [facility] [place] [facility] [address] [id number], [place] [address] Sep, [facility] [address], [place] [address] Aug, [facility] [address], [place] [address] Aug, [facility] [address], [place] [address] Aug, [facility] [id number] [place] [address] June, [facility] [id number] [place] [address] May, [facility] [address], [place] [address] Mar, [facility] [address], [place] [address] Feb, [facility] [address], [place] [address] Jan, IMMUNIZATIONS No Known Immunizations SOCIAL HISTORY Never Assessed REASON FOR VISIT EMR-[facility] [place] PLAN OF CARE VITAL SIGNS MEDICATIONS Unknown Medications RESULTS No Results PROCEDURES No Known procedures INSTRUCTIONS MEDICATIONS ADMINISTERED No Known Medications
--- OUTSIDE RECORDS SUMMARY | 2018-07-11 11:29 | XMS REPORT ---
Author Author Migration, Doctor Organization [facility] Address Unknown Phone Unavailable Care Team Providers Care Health And Human Performance Professor Name Role Phone Migration, Doctor Unavailable Unavailable PROBLEMS Type Condition ICD9-CM Code [id number] Code Onset Dates Condition Status SNOMED Code Problem Knee pain M25.569 Active [id number] ALLERGIES No Information ENCOUNTERS Encounter Location Date Diagnosis [place] [id number] [place] [address] Mar, Sore throat J02.9 and Acute nasopharyngitis J00 [place] [id number] [place] [address] May, Left knee pain M25.562 [place] [id number] [place] [address] Nov, Left lateral knee pain M25.562 [facility] [id number] [place] [address] Oct, Ankle sprain 845.00 [place] [id number] [place] [address] Oct, Nausea 787.02 [facility] [id number] [place] [address] Sep, Contusion 924.9 [facility] [id number] [place] [address] May, [facility] [id number] [place] [address] May, [facility] [id number] [place] [address] Sep, [facility] [id number] [place] [address] Sep, [facility] [place] [facility] [address] [id number] [place] [address] Sep, [facility] [place] [facility] [address] [id number] [place] [address] Sep, [facility] [place] [facility] [address] [id number] [place] [address] Jul, [facility] [place] [facility] [address] [id number] [place] [address] Jul, [facility] [place] [facility] [address] [id number] [place] [address] June, [facility] [place] [facility] [address] [id number] [place] [address] June, [facility] [place] [facility] [address] [id number] [place] [address] Aug, [facility] [place] [facility] [address] [id number] [place] [address] Jul, [facility] [place] [facility] [address] [id number] [place] [address] Jul, [facility] [place] [facility] [address] [id number] [place] [address] Mar, [facility] [place] [facility] [address] [id number] [place] [address] Feb, [facility] [place] [facility] [address] [id number], [place] [address] Feb, [facility] [place] [facility] [address] [id number] [place] [address] Jan, [facility] [place] [facility] [address] [id number] [place] [address] Jan, [facility] [place] [facility] [address] [id number] [place] [address] Jan, [facility] [place] [facility] [address] [id number] [place] [address] Jan, [facility] [place] [facility] [address] [id number] [place] [address] Dec, [facility] [place] [facility] [address] [id number] [place] [address] Dec, [facility] [place] [facility] [address] [id number] [place] [address] Nov, [facility] [place] [facility] [address] [id number] [place] [address] Nov, [facility] [place] [facility] [address] [id number] [place] [address] Nov, [facility] [place] [facility] [address] [id number] [place] [address] Nov, [facility] [place] [facility] [address] [facility] [id number] [place] [address] Nov, [facility] [place] [facility] [address] [id number] [place] [address] Nov, [facility] [place] [facility] [address] [facility] [id number] [place] [address] 15 Nov, 2011 [facility] [place] [facility] [address] [facility] [id number] [place] [address] Nov, [facility] [place] [facility] [address] [id number] [place] [address] Nov, [facility] [place] [facility] [address] [id number], [place] [address] Nov, [facility] [place] [facility] [address] [id number] [place] [address] Nov, [facility] [place] [facility] [address] [facility] [id number] [place] [address] Nov, [facility] [place] [facility] [address] [id number], [place] [address] Sep, [facility] [address], [place] [address] Aug, [facility] [address], [place] [address] Aug, [facility] [address], [place] [address] Aug, [facility] [id number] [place] [address] June, [facility] [id number] [place] [address] May, [facility] [address], [place] [address] Mar, [facility] [address], [place] [address] Feb, [facility] [address], [place] [address] Jan, IMMUNIZATIONS No Known Immunizations SOCIAL HISTORY Never Assessed REASON FOR VISIT EMR-[facility] PLAN OF CARE VITAL SIGNS MEDICATIONS Unknown Medications RESULTS No Results PROCEDURES No Known procedures INSTRUCTIONS MEDICATIONS ADMINISTERED No Known Medications
--- OUTSIDE RECORDS SUMMARY | 2018-07-11 11:29 | XMS REPORT ---
Author Author ANGELITO SHORE [facility] Address [address] [place] [address] Care Team Providers Care Narrow Fabric Loom Fixer Name Role Phone ANGELITO SHORE Unavailable PROBLEMS Type Condition ICD9-CM Code [id number] Code Onset Dates Condition Status SNOMED Code Problem Knee pain M25.569 Active 68227331 ALLERGIES Substance Reaction Event Type Date Status Naproxen 500 Mg Tablet Unknown Non Drug Allergy Mar, Active ENCOUNTERS Encounter Location Date Diagnosis [facility] [id number] [place] [address] Mar, Sore throat J02.9 and Acute nasopharyngitis J00 [facility] [id number] [place] [address] May, Left knee pain M25.562 [facility] [address] [address] Nov, Left lateral knee pain M25.562 [facility] [id number] [place] [address] Oct, Ankle sprain 845.00 [facility] [id number] [place] [address] Oct, Nausea 787.02 [facility] [id number] [place] [address] Sep, Contusion 924.9 [facility] [id number] [place] [address] May, [facility] [id number] [place] [address] May, [facility] [address] [place] [place] [address] Sep, [facility] [address] [id number] [place] [address] Sep, [facility] [place] [facility] [address] [id number] [place] [address] Sep, [facility] [place] [facility] [address] [id number] [place] [address] Sep, [facility] [place] [facility] [address] [id number] [place] [address] Jul, [facility] [place] [facility] [address] [id number] [place] [address] Jul, [facility] [place] [facility] [address] [id number] [place] [address] June, [facility] [address] [id number] [place] [address] June, [facility] [address] [id number] [place] [address] Aug, [facility] [place] [facility] [address] [id number] [place] [address] Jul, [facility] [address] [id number] [place] [address] Jul, [facility] [place] [facility] [address] [id number] [place] [address] Mar, [facility] [place] [facility] [address] [id number] [place] [address] Feb, [facility] [place] [facility] [address] [id number] [place] [address] Feb, [facility] [place] [facility] [address] [id number] [place] [address] Jan, [facility] [place] [facility] [address] [id number] [place] [address] Jan, [facility] [place] [facility] [address] [id number] [place] [address] Jan, [facility] [place] [facility] [address] [id number] [place] [address] Jan, [facility] [place] [facility] [address] [id number] [place] [address] Dec, [facility] [place] [facility] [address] [id number] [place] [address] Dec, [facility] [place] [facility] [address] [id number] [place] [address] Nov, [facility] [place] [facility] [address] [id number] [place] [address] Nov, [facility] [place] [facility] [address] [id number] [place] [address] Nov, [facility] [place] [facility] [address] [id number] [place] [address] Nov, [facility] [place] [facility] [address] [id number] [place] [address] Nov, [facility] [place] [facility] [address] [id number] [address] Nov, [facility] [place] [facility] [address] [id number], [place] [address] 15 Nov, 2011 [facility] [place] [facility] [address] [id number], [place] [address] 11 Nov, 2011 [facility] [place] [facility] [address] [id number], [place] [address] 10 Nov, 2011 [facility] [place] [facility] [address] [id number], [place] [address] 09 Nov, 2011 [facility] [place] [facility] [address] [id number], [place] [address] Nov, [facility] [place] [facility] [address] [id number], [place] [address] Nov, [facility] [id number] [address] Sep, [facility] [id number] [address] Aug, [facility] [id number] [address] Aug, [facility] [id number] [place] [address] Aug, [facility] [id number] [place] [address] June, [facility] [id number] [place] [address] May, [facility] [id number] [place] [address] Mar, [facility] [id number] [address] Feb, [facility] [id number] [address] Jan, IMMUNIZATIONS No Known Immunizations SOCIAL HISTORY Never Assessed REASON FOR VISIT Sore throat x 5 days. states he was feverish. Was having vomiting and diarrhea. [place], PHQ2, Audit C PLAN OF CARE Activity Details Follow Up prn Reason: VITAL SIGNS Height 68 in 2017-04-04 Weight 163.0 lbs 2017-04-04 Temperature 98.4 degrees Fahrenheit 2017-04-04 Heart Rate 64 bpm 2017-04-04 Respiratory Rate 20 2017-04-04 BMI 24.78 kg/m2 2017-04-04 Blood pressure systolic 118 mmHg 2017-04-04 Blood pressure diastolic 72 mmHg 2017-04-04 MEDICATIONS Medication Instructions Dosage Frequency Start Date End Date Duration Status DayQuil Multi-Symptom Active RESULTS Name Result Date Reference Range STREP A (IN HOUSE) 2017-04-04 STREP A Negative Control + Lot # [id number] Exp date 11/19/2017 PROCEDURES Procedure Date Ordered Result Body Site STREP A ASSAY W/OPTIC Apr 04, 2017 INSTRUCTIONS MEDICATIONS ADMINISTERED No Known Medications
--- OUTSIDE RECORDS SUMMARY | 2018-07-11 11:30 | XMS REPORT | Continuity of Care Document ---
Author Organization Unknown Address Unknown Allergies Active Description Code Type Severity Reaction Onset Reported/Identified Relationship to Patient Clinical Status Yes No Known Drug Allergies [id number] Drug Allergy Unknown N/A 12/20/2010 Yes naproxen 500 mg tablet Drug Allergy 06/28/2011 Yes naproxen 500 mg tablet Drug Allergy N/A N/A 06/28/2011 Yes naproxen [id number] Drug Allergy Unknown N/A 05/01/2015 Medications There [...] V74.5 STD SCREEN 08/15/2012 YVONNE RODRIGUEZ APRN T V74.5 STD SCREEN 08/15/2012 YVONNE RODRIGUEZ APRN V74.5 STD SCREEN 07/03/2013 YVONNE RODRIGUEZ APRN T 530.81 GERD 07/03/2013 YVONNE RODRIGUEZ APRN T 530.81 GERD 07/29/2013 YVONNE RODRIGUEZ APRN 535.50 [...] MAJOR OPEN WOUND AND WITHOUT INFECTION 05/01/2015 SWETHA MILLER MD Ot K52.9 NONINFECTIVE GASTROENTERITIS AND COLITIS 05/04/2015 SEWTHA MILLER MD Ot K52.9 05/27/2015 SWETHA MILLER MD Ot K52.9 06/16/2016 SHLOMO LEON APRN Ot [...] Ot M25.511 PAIN IN RIGHT SHOULDER 08/31/2016 CAROLYN, SHLOMO M RN IMMUNOLOGY Ot W19.XXXA UNSPECIFIED FALL, INITIAL ENCOUNTER 08/31/2016 SHLOMO LEON RN IMMUNOLOGY Ot Y99.8 OTHER EXTERNAL CAUSE STATUS 05/07/2017 SHLOMO LEON RN IMMUNOLOGY Ot M25.511 PAIN IN RIGHT SHOULDER 05/07/2017 SHLOMO LEON RN IMMUNOLOGY Ot W19.XXXA UNSPECIFIED FALL, INITIAL ENCOUNTER 05/07/2017 SHLOMO LEON RN IMMUNOLOGY Ot Y99.8 OTHER EXTERNAL CAUSE STATUS 05/07/2017 RAINER DO, JANA K Ot K21.9 GASTRO-ESOPHAGEAL REFLUX DISEASE WITHOUT 05/07/2017 RAINER DO, JANA K Ot M25.562 PAIN IN LEFT KNEE 05/07/2017 RAINER DO, JANA K Ot Z91.81 HISTORY OF FALLING 05/09/2017 RAINER DO, JANA K Ot K21.9 GASTRO-ESOPHAGEAL REFLUX DISEASE WITHOUT 05/09/2017 RAINER DO, JANA K Ot M25.562 PAIN IN LEFT KNEE 05/09/2017 RAINER DO, JANA K Ot Z91.81 HISTORY OF FALLING Procedures Code Description [place] [address] ROUTINE VENIPUNCTURE 01/20/2012 HERPSM1,2 HERPES SIMPLEX 1 AND 2, IGM, IGG 01/21/2012 39746 ROUTINE VENIPUNCTURE 08/15/2012 65426 [facility] 08/15/2012 62538 GC/CHLAM URINE ([facility]) 08/15/2012 15728 HIV ANTIBODIES ([facility]) 08/17/2012 27857 XRAY TIBIA/FIBULA LEFT 09/24/2013 Results There is no data. Encounters ACCT No. Visit Date/Time Discharge Status Pt. Type Provider Facility Loc./Unit Complaint [id number] 09/24/2013 14:30:00 09/24/2013 23:59:59 CLS Outpatient YVONNE RODRIGUEZ APRN [id number] 07/29/2013 15:43:00 07/29/2013 23:59:59 CLS Outpatient YVONNE RODRIGUEZ APRN [id number] 03/24/2012 09:29:00 03/24/2012 23:59:59 CLS Outpatient [id number] 01/20/2012 12:21:00 01/20/2012 23:59:59 CLS Outpatient YVONNE RODRIGUEZ APRN [id number] 01/20/2012 12:21:00 01/20/2012 23:59:59 CLS Outpatient [id number] 08/15/2012 16:28:00 Document Registration [id number] 04/04/2017 09:20:00 04/04/2017 23:59:59 CLS Outpatient CHARANJIT CASPER [facility] [id number] 05/07/2017 17:17:00 05/07/2017 19:00:00 DIS Emergency JANA SPEAR DO [facility] ER L KNEE PAIN [id number] 06/16/2016 14:24:00 06/16/2016 23:59:59 CLS Outpatient SHLOMO LEON APRN [facility] RAD M25.511 [id number] 05/01/2015 09:45:00 05/01/2015 12:39:00 DIS Emergency PAUL TUTTLE, SWETHA Steele [facility] ER HEADACHE VOMITING/DIARRHEA FEVER [id number] 08/27/2011 09:53:00 Document Registration [id number] 12/20/2010 21:57:00 Document Registration
--- NOTE | 2018-07-11 12:13 | NUR ---
PT NOTIFIED WE NEEDED A URINE SAMPLE.
[2018-07-11 12:16] LABS: BASOPHILS % (AUTO) 0 % (0-10); EOSINOPHILS # (AUTO) 0.2 10^3/uL (0.0-0.3); EOSINOPHILS % (AUTO) 3 % (0-10); HEMATOCRIT 43 % (40-54); HEMOGLOBIN 15.6 G/DL (13.3-17.7); LYMPHOCYTES # (AUTO) 2.3 X 10^3 (1.0-4.0); LYMPHOCYTES % (AUTO) 33 % (12-44); MEAN CORPUSCULAR HEMOGLOBIN 31 PG (25-34); MEAN CORPUSCULAR HGB CONC 36 G/DL (32-36); MEAN CORPUSCULAR VOLUME 84 FL (80-99); MEAN PLATELET VOLUME 9.8 FL (7.4-10.4); MONOCYTES # (AUTO) 0.7 X 10^3 (0.0-1.0); MONOCYTES % (AUTO) 10 % (0-12); NEUTROPHILS # (AUTO) 3.7 X 10^3 (1.8-7.8); NEUTROPHILS % (AUTO) 54 % (42-75); PLATELET COUNT 183 10^3/uL (130-400); WHITE BLOOD COUNT 6.9 10^3/uL (4.3-11.0)
[2018-07-11 12:30] LABS: BILIRUBIN,URINE NEGATIVE (NEGATIVE); CLARITY,URINE CLEAR; COLOR,URINE YELLOW; GLUCOSE, URINE (UA) NEGATIVE (NEGATIVE); KETONES,URINE NEGATIVE (NEGATIVE); LEUKOCYTE ESTERASE ,URINE 1+ (NEGATIVE); NITRITE,URINE NEGATIVE (NEGATIVE); PH,URINE 6 (5-9); PROTEIN,URINE NEGATIVE (NEGATIVE); UROBILINOGEN,URINE NORMAL (NORMAL)
[2018-07-11] MEDS ORDERED: NS IV 1000 ML 1,000 ML IV SCH (12:30)
[2018-07-11] MEDS ORDERED: ONDANSETRON 4 MG/2 ML (SDV) Z0FRAN IVP ONE (12:30)
[2018-07-11] MEDS ORDERED: fentaNYL INJECTION 100 MCG/2 ML AMP IVP ONE (12:30)
--- NOTE | 2018-07-11 12:34 | ED Abdominal Pain ---
General Chief Complaint: Abdominal/GI Problems Stated Complaint: LEFT SIDE PAIN Nursing Triage Note: ARRIVED VIA AMB TO TRIAGE WITH COMPLAINTS OF SUPRAPUBIC PAIN ET RADIATING TO LEFT FLANK AREA SINCE THIS AM. STATES HE TOOK ALEEVE. PT IS DIAPHORETIC ET STATES HE FEELS LIKE HE IS GOING TO PASS OUT. Sepsis Screen: No Definite Risk Source of Information: Patient Exam Limitations: No Limitations History of Present Illness Date Seen by Provider: July 11, 2018 Time Seen by Provider: 12:10 Initial Comments 23 year old male who presents to the emergency room with complains of suprapubic abdominal pain that radiates to the left flank that woke him up from a sleep 2 hours ago. Reports taking Aleve with out relief. Reports nausea, denies fevers or vomiting. Timing/Duration: 1-2 Days Location: Suprapubic Radiation: Flank (left) Associated Symptoms: Nausea/Vomiting Allergies and Home Medications Allergies Coded Allergies: naproxen (Verified Allergy, Unknown, 05/01/15) Home Medications Hydrocodone Bit/Acetaminophen 1 Tab Tab, 1-2 EACH PO Q6H PRN for PAIN-MODERATE Prescribed by: ANTHONY SULLIVAN on 07/11/18 1353 Ondansetron 4 Mg Tab.rapdis, 4 MG PO Q4H PRN for NAUSEA/VOMITING-1ST LINE Prescribed by: ANTHONY SULLIVAN on 07/11/18 1353 Sulfamethoxazole/Trimethoprim 1 Each Tablet, 1 EACH PO BID Prescribed by: ANTHONY SULLIVAN on 07/11/18 1353 Patient Home Medication List Home Medication List Reviewed: Yes Review of Systems Review of Systems Constitutional: see HPI; No chills, No fever Gastrointestinal: See HPI, Abdominal Pain, Nausea Genitourinary: See HPI, Flank Pain All Other Systems Reviewed Negative Unless Noted: Yes Past Estlrev-Vbmqau-Ykomde Hx Past Med/Social Hx: Reviewed Nursing Past Med/Soc Hx Patient Social History Alcohol Use: Rarely Uses Recreational Drug Use: No Smoking Status: Never a Smoker Recent Foreign Travel: No Contact w/Someone Who Travel: No Recent Infectious Disease Expo: No Past Medical History Surgeries: No Respiratory: No Cardiac: No Neurological: No Genitourinary: No Gastrointestinal: Yes Gastroesophageal Reflux Musculoskeletal: Yes (LEFT KNEE PROBLEMS) Endocrine: No HEENT: No Cancer: No Psychosocial: No Integumentary: No Family Medical History Reviewed Nursing Family Hx Physical Exam Vital Signs Vital Signs - First Documented 07/11/18 11:50 Temp 98.0 Pulse 69 Resp 16 B/P (MAP) 149/112 (124) Pulse Ox 95 O2 Delivery Room Air Capillary Refill : Less Than 3 Seconds Height/Weight/BMI Height: 5'9.00" Weight: 165lbs. oz. 74.018214cv; 25.74 BMI Method:Stated General Appearance: WD/WN, mild distress Respiratory: chest non-tender, lungs clear, normal breath sounds, no respiratory distress, no accessory muscle use Cardiovascular: normal peripheral pulses, regular rate, rhythm, no edema, no gallop, no JVD, no murmur Gastrointestinal: normal bowel sounds, non tender, soft, no organomegaly, no pulsatile mass Extremities: normal capillary refill Neurologic/Psychiatric: alert, normal mood/affect, oriented x 3 Skin: normal color, warm/dry Progress/Results/Core Measures Results/Orders Lab Results Laboratory Tests Test 07/11/18 12:11 07/11/18 12:22 Range/Units White Blood Count 6.9 4.3-11.0 10^3/uL Red Blood Count 5.08 4.35-5.85 10^6/uL Hemoglobin 15.6 13.3-17.7 G/DL Hematocrit 43 40-54 % Mean Corpuscular Volume 84 80-99 FL Mean Corpuscular Hemoglobin 31 25-34 PG Mean Corpuscular Hemoglobin Concent 36 32-36 G/DL Red Cell Distribution Width 12.0 10.0-14.5 % Platelet Count 183 130-400 10^3/uL Mean Platelet Volume 9.8 7.4-10.4 FL Neutrophils (%) (Auto) 54 42-75 % Lymphocytes (%) (Auto) 33 12-44 % Monocytes (%) (Auto) 10 0-12 % Eosinophils (%) (Auto) 3 0-10 % Basophils (%) (Auto) 0 0-10 % Neutrophils # (Auto) 3.7 1.8-7.8 X 10^3 Lymphocytes # (Auto) 2.3 1.0-4.0 X 10^3 Monocytes # (Auto) 0.7 0.0-1.0 X 10^3 Eosinophils # (Auto) 0.2 0.0-0.3 10^3/uL Basophils # (Auto) 0.0 0.0-0.1 10^3/uL Sodium Level 141 135-145 MMOL/L Potassium Level 3.9 3.6-5.0 MMOL/L Chloride Level 105 98-107 MMOL/L Carbon Dioxide Level 23 21-32 MMOL/L Anion Gap 13 5-14 MMOL/L Blood Urea Nitrogen 19 H 7-18 MG/DL Creatinine 1.27 0.60-1.30 MG/DL Estimat Glomerular Filtration Rate > 60 BUN/Creatinine Ratio 15 Glucose Level 116 H 70-105 MG/DL Calcium Level 9.7 8.5-10.1 MG/DL Corrected Calcium 8.5-10.1 MG/DL Total Bilirubin 0.7 0.1-1.0 MG/DL Aspartate Amino Transf (AST/SGOT) 65 H 5-34 U/L Alanine Aminotransferase (ALT/SGPT) 115 H 0-55 U/L Alkaline Phosphatase 63 40-136 U/L Total Protein 7.0 6.4-8.2 GM/DL Albumin 4.6 H 3.2-4.5 GM/DL Amylase Level 82 25-125 U/L Lipase 20 8-78 U/L Urine Color YELLOW Urine Clarity CLEAR Urine pH 6 5-9 Urine Specific [place] 1.025 H 1.016-1.022 Urine Protein NEGATIVE NEGATIVE Urine Glucose (UA) NEGATIVE NEGATIVE Urine Ketones NEGATIVE NEGATIVE Urine Nitrite NEGATIVE NEGATIVE Urine Bilirubin NEGATIVE NEGATIVE Urine Urobilinogen NORMAL NORMAL MG/DL Urine Leukocyte Esterase 1+ H NEGATIVE Urine RBC (Auto) 5+ H NEGATIVE Urine RBC 10-25 H /HPF Urine WBC 0-2 /HPF Urine Crystals NONE /LPF Urine Bacteria TRACE /HPF Urine Casts NONE /LPF Urine Mucus NEGATIVE /LPF Urine Culture Indicated NO My Orders Orders - ANTHONY SULLIVAN Ua Culture If Indicated (07/11/18 11:44) Comprehensive Metabolic Panel (07/11/18 12:10) Lipase (07/11/18 12:10) Amylase (07/11/18 12:10) Ed Iv/Invasive Line Start (07/11/18 12:10) Cbc With Automated Diff (07/11/18 12:10) Fentanyl Injection (Sublimaze Injection (07/11/18 12:30) Ns Iv 1000 Ml (Sodium Chloride 0.9%) (07/11/18 12:30) Ondansetron Injection (Zofran Injectio (07/11/18 12:30) Ct Abd/Pelvis Wo(Kidney Stone) (07/11/18 12:50) Abdomen/Kub 1view (07/11/18 12:50) Medications Given in ED Vital Signs/I&O 07/11/18 07/11/18 11:50 14:07 Temp 98.0 98.0 Pulse 69 56 Resp 16 16 B/P (MAP) 149/112 (124) 90/58 (69) Pulse Ox 95 95 O2 Delivery Room Air Blood Pressure Mean: 124 Progress Progress Note : Time: 12:50 Progress Note I have seen and evaluated the patient. His pain and nausea have resolved. Given amount of blood in urine CT kidney stone search was ordered. 1314: I have informed him of his CT findings and he agree with plan of care. He is still pain free at this time. Return precautions were given. Departure Impression Primary Impression: Kidney stone Disposition: HOME, SELF-CARE Condition: Stable/Unchanged Departure-Patient Inst. Decision time for Depature: 13:14 Referrals: NO,LOCAL PHYSICIAN (PCP) Primary Care Physician ESRGE MOMIN MD Patient Instructions: Kidney Stones in Adults Add. Discharge Instructions: Take medications as directed. Drink plenty of fluids to stay hydrated and help flush out your kidneys. Tylenol and Motrin as needed for additional pain relief. Do not exceed your daily limit of Tylenol of [address] Momin's office today to schedule an appointment for further evaluation of your kidney stone. Strain all urine and if you should pass a kidney stone take it with you to your appointment. All discharge instructions reviewed with patient and/or family. Voiced understanding. Scripts Hydrocodone Bit/Acetaminophen (Hydrocodone/Acetaminophen 5/325mg Tablet) 1 Tab Tab 1-2 EACH PO Q6H PRN for PAIN-MODERATE MDD 10 for 3 Days, #14 TAB 0 Refills Prov: ANTHONY SULLIVAN 07/11/18 Ondansetron (Ondansetron Odt) 4 Mg Tab.rapdis 4 MG PO Q4H PRN for NAUSEA/VOMITING-1ST LINE, #14 TAB Prov: ANTHONY SULLIVAN 07/11/18 Sulfamethoxazole/Trimethoprim (Bactrim Ds Tablet) 1 Each Tablet 1 EACH PO BID for 7 Days, #14 TAB Prov: ANTHONY SULLIVAN 07/11/18 ANTHONY SULLIVAN July 11, 2018 12:34
[2018-07-11 12:36] LABS: ALANINE AMINOTRANSFERASE 115 U/L (0-55); ALBUMIN 4.6 GM/DL (3.2-4.5); ALKALINE PHOSPHATASE 63 U/L (40-136); AMYLASE 82 U/L (25-125); BILIRUBIN,TOTAL 0.7 MG/DL (0.1-1.0); BUN/CREATININE RATIO 15; CALCIUM 9.7 MG/DL (8.5-10.1); CARBON DIOXIDE 23 MMOL/L (21-32); CHLORIDE 105 MMOL/L (98-107); CREATININE SERUM 1.27 MG/DL (0.60-1.30); GFR ESTIMATED > 60; GLUCOSE 116 MG/DL (70-105); LIPASE 20 U/L (8-78); POTASSIUM 3.9 MMOL/L (3.6-5.0); SODIUM 141 MMOL/L (135-145)
[2018-07-11 12:43] LABS: BACTERIA,URINE TRACE /HPF; WBC,URINE 0-2 /HPF
--- NOTE | 2018-07-11 13:45 | Diagnostic Imaging Report ---
PROCEDURE: CT urinary tract, rule out kidney stone. TECHNIQUE: Multiple contiguous axial images were obtained through the abdomen and pelvis without the use of intravenous contrast. Auto Exposure Controls were utilized during the CT exam to meet ALARA standards for radiation dose reduction. INDICATION: Severe left abdominal pain radiating to the back. COMPARISON: None. FINDINGS: The lung bases are clear. The heart is normal in size. There is no pericardial effusion. The liver demonstrates no focal lesions. The spleen appears normal. The adrenal glands are normal. The pancreas is unremarkable. There is mild left hydronephrosis, with an obstructing 3 mm calculus in the distal left ureter, 1-2 cm from the ureterovesicular junction. No bladder calculi are seen. There is no right hydronephrosis or renal calculi. Moderate stool is seen throughout the colon. The appendix is normal. There is no distention of small bowel to suggest obstruction. No free fluid or free air is seen. No acute osseous abnormality is seen. IMPRESSION: 1. Obstructing 3 mm calculus in the distal left ureter with mild left hydronephrosis. 2. Moderate stool is seen throughout the colon; please correlate with any history of constipation. Dictated by: Dictated on workstation # [id number]
[2018-07-11] MEDS ORDERED: ONDA4TAB11 PO (13:53)
[2018-07-11] MEDS ORDERED: SULF1TAB35 PO (13:53)
[2018-07-11] MEDS ORDERED: ACHD5005 PO (13:53)
[2018-07-11 14:07] VITALS: BP 90/58
--- NOTE | 2018-07-11 14:07 | Diagnostic Imaging Report ---
PATIENT HISTORY: Severe left abdominal pain. Difficulty urinating. TECHNIQUE: Single frontal view of the abdomen. COMPARISON: CT from the same day. FINDINGS: The previously seen 3 mm calculus in the distal left ureter may be faintly seen in the left pelvis, but is poorly defined. This is better seen on the prior CT. There is moderate stool in the colon. No distended loops of small bowel are seen to indicate obstruction. No large collection of free air is seen. IMPRESSION: The 3 mm calculus in the distal left ureter is faintly visible radiographically, and better seen on the prior CT. Dictated by: Dictated on workstation # [id number]
== END 2018-07-11 14:13 | disposition home or self-care (01) ==
LOC: EDUNIT# 11:22 → ER 11:23
DX: N13.2 Hydronephrosis with renal and ureteral calculous obstruction (principal); K21.9 Gastro-esophageal reflux disease without esophagitis; Z88.6 Allergy status to analgesic agent
CPT/HCPCS: 36415; 74018; 74176; 80053; 81000; 82150; 83690; 85025